=== PATIENT | male | born 1960 | race Caucasian/White ===

== ENCOUNTER 2019-01-02 18:30 | Emergency (ER) | payer OTHER ==
[2019-01-02 19:12] VITALS: BP 160/87; PULSE 66; RESP 18; TEMP 98.3
[2019-01-02] MEDS ORDERED: ACET/COD 300 MG/30 MG STARTER PACK 6 TAB BTL PO STA (19:19)
--- NOTE | 2019-01-02 19:21 | ED ---
Upper Extremity HPI - General Chief Complaint: Extremity Injury, Upper Stated Complaint: i[facility] - rt shoulder injury Time Seen by Provider: 01/02/19 19:13 Source: patient Mode of arrival: ambulatory Limitations: no limitations - History of Present Illness Initial Comments: 58-year-old male presenting today for chief complaint of right shoulder pain. Patient states that just prior to arrival while at work when he went to lift item onto a high level he states he felt a pop in his right shoulder and pain over the lateral aspect. Patient denies any masses palpable. He states the pain increases with overhead movement. Denies any posterior shoulder pain. Patient has a chest pain shortness of breath denies any pain prior to the lifting motion. Remaining review of system negative. Patient denies any neck injury or pain fall numbness tingling or loss in sensation of the extremity. - Related Data Allergies Allergy/AdvReac Type Severity Reaction Status Date / Time No Known Allergies Allergy Verified 01/02/19 19:12 Review of Systems ROS Statement: Those systems with pertinent positive or pertinent negative responses have been documented in the HPI. ROS Other: All systems not noted in ROS Statement are negative. Past Medical History Past Medical History: No Reported History History of Any Multi-Drug Resistant Organisms: None Reported Past Surgical History: No Surgical Hx Reported Past Psychological History: No Psychological Hx Reported Smoking Status: Never smoker Past Alcohol Use History: None Reported Past Drug Use History: None Reported General Exam - General Exam Comments Initial Comments: General: The patient is awake and alert, in no distress, and does not appear acutely ill. Eye: +3 mm pupils are equal, round and reactive to light, extra-ocular movements are intact. No nystagmus. There is normal conjunctiva bilaterally. No signs of icterus. Ears, nose, mouth and throat: There are moist mucous membranes and no oral lesions. Neck: The neck is supple, there is no tenderness or JVD. Cardiovascular: There is a regular rate and rhythm. No murmur, rub or gallop is appreciated. Respiratory: Lungs are clear to auscultation, respirations are non-labored, breath sounds are equal. No wheezes, stridor, rales, or rhonchi. Gastrointestinal: Soft, non-distended, non-tender abdomen without masses or organomegaly noted. There is no rebound or guarding present. No CVA tenderness. Bowel sounds are unremarkable. Musculoskeletal: Normal inspection of the shoulders bilaterally. No obvious gross deformity. Patient tender patient along the lateral aspect of the right shoulder. Patient has increased pain with head motion. Positive Neer sign. Radial pulses +2 equal person bilaterally masses. no palpable muscle belly in the biceps or triceps regions. patient can fully range at the elbows and wrists bilaterally make the okay fingers crossed thumbs up and oppose the wrist bilaterally. patient has no badge anesthesia. compartments are soft and compressible. Neurological: A&O x 3. CN II-XII intact, There are no obvious motor or sensory deficits. Coordination appears grossly intact. Speech is normal. Skin: Skin is warm and dry and no rashes or lesions are noted. Psychiatric: Cooperative, appropriate mood & affect, normal judgment. Limitations: no limitations Course Vital Signs 01/02/19 19:10 Temperature 98.3 F Pulse Rate 66 Respiratory 18 Rate Blood Pressure 160/87 O2 Sat by Pulse 97 Oximetry Medical Decision Making - Medical Decision Making 58-year-old male presented for right shoulder plain after lifting heavy object. It's along the deltoid muscle. No palpable mass. Patient has pain with overhead range of motion. No posterior shoulder pain. Imaging studies negative for acute osseous injury no dislocation. Patient had asked intact. Patient placed in sling for comfort. I recommend outpatient orthopedic surgery for further evaluation. As it may be a non-osseous injury. Patient is agreeable to this Plan. I recommended resting the right shoulder andthe right arm until orthopedic clearance. Patient is agreeable to this plan. Patient was instructed to take ibuprofen and Tylenol for pain management. An ice the area. Remaining return parameters and symptomatically treated plan was discussed. Patient verbalized understanding as well as the importance of primary and orthopedic follow-up. Patient discharged appearing well Disposition Clinical Impression: Right shoulder pain, Right shoulder injury Disposition: HOME SELF-CARE Condition: Good Instructions (If sedation given, give patient instructions): Shoulder Sprain (ED) Additional Instructions: Please use medication as discussed. Please follow-up with orthopedic surgery within the next week. Please return to emergency room if the symptoms increase or worsen or for any other concerns. Is patient prescribed a controlled substance at d/c from ED?: No Referrals: None,Stated [Primary Care Provider] - 1-2 days Vikram Waterman MD [STAFF PHYSICIAN] - 1-2 days Time of Disposition: 19:56
--- NOTE | 2019-01-02 19:45 | XR ---
PROCEDURE: XR shoulder complete RT - 3V DATE AND TIME: 01/02/2019 7:36 PM CLINICAL INDICATION: PHH; Pain after injury TECHNIQUE: Department protocol COMPARISON: None FINDINGS: There is no fracture or malalignment. The soft tissues are unremarkable. IMPRESSION: NO ACUTE PROCESS.
== END 2019-01-02 20:28 | disposition home or self-care (01) ==
LOC: EC 18:30
DX: S49.91XA Unspecified injury of right shoulder and upper arm, initial encounter (principal); X50.0XXA Overexertion from strenuous movement or load, initial encounter; Y92.69 Other specified industrial and construction area as the place of occurrence of the external cause; Y99.0 Civilian activity done for income or pay
CPT/HCPCS: 99283

== ENCOUNTER → 2019-01-18 | Outpatient (CLI) | payer OTHER ==
--- NOTE | 2019-01-18 18:11 | MR ---
EXAMINATION TYPE: MR shoulder RT wo con DATE OF EXAM: 01/18/2019 COMPARISON: Plain film 01/02/2019 HISTORY: Lifting injury, pain right shoulder TECHNIQUE: Multiplanar, multisequence imaging of the right shoulder is performed without contrast. FINDINGS: There is motion on the exam. Rotator Cuff: There is a rotator cuff tear, the supraspinatus tendon and infraspinatus tendon shows r etraction to the level of the acromion, acromioclavicular joint. Acromioclavicular Joint: Hypertrophic change present at the acromioclavicular joint, there is subacro mial subdeltoid bursa fluid. Glenohumeral Joint: Shoulder is high riding Labrum: The labrum appears grossly intact given limitation of non-arthrogram study. Biceps Tendon: The long head of biceps is in normal location within bicipital groove peripherally but is not seen with certainty at its more central expected location. Bone marrow signal: No focal abnormal marrow signal is appreciated. Other: There is a joint effusion. Suspect a distal acromial spur. Fluid signal present in the muscula r fibers about the humerus IMPRESSION: Rotator cuff tear with retraction. Biceps tendon is also not seen centrally within the bicipital groo ve, there may be tear.
== END | disposition home or self-care (01) ==
LOC: RADMRIMAIN 16:32
PROVIDERS: ATTEND Emergency Medicine
DX: M75.101 Unspecified rotator cuff tear or rupture of right shoulder, not specified as traumatic (principal)